=== PATIENT | male | born 1990 | race Hispanic/Latino ===

== ENCOUNTER → 2018-08-23 | Outpatient (CLI) | payer OTHER ==
--- NOTE | 2018-08-24 10:45 | Diagnostic Imaging Report ---
TECHNIQUE: Magnetic resonance imaging of the RIGHT KNEE was performed WITHOUT injected contrast. HISTORY: SPRAIN OF ANTERIOR CRUCIATE LIGAMEN , sudden. Plain soccer, pain inside right knee, May 14, 2018 COMPARISON: None available. FINDINGS: Susceptibility artifacts and inhomogeneous fat saturation centered in the region of the superior patella, limits regional evaluation. LIGAMENTS AND TENDONS: ACL: Intact PCL: Intact Collateral ligaments: Intact Iliotibial band: Unremarkable Popliteal tendon: Intact Extensor mechanism: The visualized portions appear intact. JOINT: Menisci: Medial: Intact Lateral: Intact Articular Cartilage: Medial Compartment: No focal defect. Lateral Compartment: No focal defect. Patellofemoral Compartment: No focal defect. Joint Fluid: The amount of fluid within the joint is within physiologic limits. BONES: No focal or infiltrative bone marrow replacing abnormality. No acute fracture. SOFT TISSUES: Otherwise, unremarkable. IMPRESSION: 1. Susceptibility artifacts at the superior patella, correlate with prior surgical history or for history of a metallic foreign body. 2. Otherwise, unremarkable. Signed by: Dr. Nolan Matthew D.O., M.M.M. on 08/24/2018 10:42 AM
== END ==
LOC: MRI 16:52
PROVIDERS: ATTEND Specialist
DX: S83.512D Sprain of anterior cruciate ligament of left knee, subsequent encounter (principal)